=== PATIENT | female | born 1975 | race African-American/Black ===

== ENCOUNTER 2017-11-11 16:45 | Emergency (ER) | payer SELFPAY ==
--- NOTE | 2017-11-11 17:25 | ER Document Report ---
ED Medical Screen (RME) - General Chief Complaint: Abdominal Pain Stated Complaint: ABDOMINAL PAIN Time Seen by Provider: 11/11/17 17:14 Mode of Arrival: Ambulatory Information source: Patient Notes: 42-year-old female presents with complaints of diarrhea abdominal cramping in bilateral lower quadrants nausea. Patient denies any similar pain in the past. Patient has never had any abdominal surgeries I have greeted and performed a rapid initial assessment of this patient. A comprehensive ED assessment and evaluation of the patient, analysis of test results and completion of the medical decision making process will be conducted by additional ED providers. PHYSICAL EXAMINATION: GENERAL: Well-appearing, well-nourished and in no acute distress. HEAD: Atraumatic, normocephalic. EYES: Pupils equal round extraocular movements intact, conjunctiva are normal. ENT: Nares patent NECK: Normal range of motion LUNGS: No respiratory distress Musculoskeletal: Normal range of motion NEUROLOGICAL: Normal speech, normal gait. PSYCH: Normal mood, normal affect. SKIN: Warm, Dry, normal turgor, no rashes or lesions noted. TRAVEL OUTSIDE OF THE [place] IN LAST 30 DAYS: No - Related Data Allergies/Adverse Reactions: No Known Allergies Allergy (Unverified 11/11/17 16:47) Past Medical History - Social History Frequency of alcohol use: Occasional Drug Abuse: None Renal/ Medical History: Denies: Hx Peritoneal Dialysis Physical Exam - Vital signs Vitals: Temp Pulse Resp BP Pulse Ox 99.3 F 110 H 18 141/84 H 98 11/11/17 16:56 11/11/17 16:56 11/11/17 16:56 11/11/17 16:56 11/11/17 16:56 Course - Vital Signs Vital signs: Temp Pulse Resp BP Pulse Ox 99.3 F 110 H 18 141/84 H 98 11/11/17 16:56 11/11/17 16:56 11/11/17 16:56 11/11/17 16:56 11/11/17 16:56
[2017-11-11] MEDS ORDERED: DICYCLOMINE HCL INJ 20 MG/2 ML AMPULE IM ONE (17:26)
[2017-11-11] MEDS ORDERED: NORMAL SALINE 1000 ML 1,000 ML IV ONE (17:26)
[2017-11-11 17:52] LABS: HEMATOCRIT 35.3 % (36.0-47.0); HEMOGLOBIN 11.2 g/dL (12.0-15.5); HGB HCT DIFFERENCE -1.7; MEAN CORPUSCULAR HEMOGLOBIN 21.5 pg (27.0-33.4); MEAN CORPUSCULAR HGB CONC 31.7 g/dL (32.0-36.0); MEAN CORPUSCULAR VOLUME 68 fl (80-97); RED BLOOD COUNT 5.21 10^6/uL (3.72-5.28); RED CELL DISTRIBUTION WIDTH 16.7 % (11.5-14.0); WHITE BLOOD COUNT 20.8 10^3/uL (4.0-10.5)
[2017-11-11] MEDS ORDERED: HYDROMORPHONE HCL INJ/PF 2 MG/ML AMPULE IV ONE (17:57)
[2017-11-11 18:01] LABS: APPEARANCE,URINE CLOUDY; BILIRUBIN,URINE SMALL (NEGATIVE); GLUCOSE, URINE NEGATIVE (NEGATIVE); KETONES,URINE TRACE mg/dL (NEGATIVE); LEUKOCYTE ESTERASE,URINE LARGE (NEGATIVE); NITRITE,URINE NEGATIVE (NEGATIVE); PROTEIN,URINE 100 mg/dL (NEGATIVE); URINE SPECIFIC GRAVITY 1.032; UROBILINOGEN,URINE NEGATIVE mg/dL (<2.0)
[2017-11-11 18:07] LABS: BASOPHILS % (MANUAL) 1 % (0-2); EOSINOPHILS % (MANUAL) 0 % (0-6); LYMPHOCYTES % (MANUAL) 4 % (13-45); TOTAL CELLS COUNTED 100
--- NOTE | 2017-11-11 18:07 | ER Document Report ---
ED GI/ - General Mode of Arrival: Ambulatory Information source: Patient TRAVEL OUTSIDE OF THE [place] IN LAST 30 DAYS: No - HPI Patient complains to provider of: Abdominal pain Onset: Yesterday Location: Other - see notes above LMP: currently on Associated symptoms: Other - see notes above <RAVEN LEE - Last Filed: 11/11/17 18:10> <EWAHALEYMARILEE - Last Filed: 11/11/17 23:27> - General Chief Complaint: Abdominal Pain Stated Complaint: ABDOMINAL PAIN Time Seen by Provider: 11/11/17 17:14 Notes: 42 year old female presents to the ED complaining of worsening bilateral lower quadrant abdominal pain that started yesterday and exacerbated early this morning at 0200. Patient reports that she developed a headache, but was able to achieve pain relief with BC powder last night. This morning the patient was still having pains and took an ibuprofen for mild relief. Patient states she has never had pain like this in the past except when she miscarried. Patient is also experiencing numerous episodes of diarrhea and nausea, but denies any vomiting or blood in stool. Patient denies any recent antibiotic use. Patient was recently on a 28 day starch restricted diet, but had a slice of bread 2 days ago. Patient is currently on her menstrual period and reports no irregularities. ( RAVEN LEE) - Related Data Allergies/Adverse Reactions: No Known Allergies Allergy (Unverified 11/11/17 16:47) Past Medical History - General Information source: Patient - Social History Smoking Status: Never Smoker Chew tobacco use (# tins/day): No Frequency of alcohol use: Occasional Drug Abuse: None Family History: Reviewed & Not Pertinent Patient has suicidal ideation: No Patient has homicidal ideation: No Renal/ Medical History: Denies: Hx Peritoneal Dialysis Surgical Hx: Negative <RAVEN LEE - Last Filed: 11/11/17 18:10> Review of Systems - Review of Systems Constitutional: No symptoms reported EENT: No symptoms reported Cardiovascular: No symptoms reported Respiratory: No symptoms reported Gastrointestinal: See HPI, Abdominal pain, Diarrhea, Nausea. denies: Vomiting, Rectal bleeding Genitourinary: No symptoms reported Female Genitourinary: See HPI, Last menstrual period - currently on Musculoskeletal: No symptoms reported Skin: No symptoms reported Hematologic/Lymphatic: No symptoms reported Neurological/Psychological: No symptoms reported -: Yes All other systems reviewed and negative <RAVEN LEE - Last Filed: 11/11/17 18:10> Physical Exam <RAVEN LEE - Last Filed: 11/11/17 18:10> <MARILEE REYES - Last Filed: 11/11/17 23:27> - Vital signs Vitals: Temp Pulse Resp BP Pulse Ox 99.3 F 110 H 18 141/84 H 98 11/11/17 16:56 11/11/17 16:56 11/11/17 16:56 11/11/17 16:56 11/11/17 16:56 - Notes Notes: GENERAL: Alert, interacts well. No acute distress. HEAD: Normocephalic, atraumatic. EYES: Pupils equal, round, and reactive to light. Extraocular movements intact. ENT: Oral mucosa moist, tongue midline. NECK: Full range of motion. Supple. Trachea midline. LUNGS: Clear to auscultation bilaterally, no wheezes, rales, or rhonchi. No respiratory distress. HEART: Tachycardic with normal rhythm. No murmurs, gallops, or rubs. ABDOMEN: Soft. Bowel sounds present in all 4 quadrants, but slightly decreased. Diffuse tenderness to palpation with mild distention and guarding. No rebound or rigidity. EXTREMITIES: Moves all 4 extremities spontaneously. No edema, radial pulses 2/4 bilaterally. No cyanosis. NEUROLOGICAL: Alert and oriented x3. Normal speech. PSYCH: Normal affect, normal mood. SKIN: Warm, dry, normal turgor. No rashes or lesions noted. (RAVEN LEE) Course - Laboratory Result Diagrams: 11/11/17 17:40 11/11/17 17:40 <RAVEN LEE - Last Filed: 11/11/17 18:10> - Laboratory Result Diagrams: 11/11/17 17:40 11/11/17 17:40 <MARILEE REYES - Last Filed: 11/11/17 23:27> - Re-evaluation Re-evalutation: 11/11/17 21:31 CBC shows marked leukocytosis of 20.8, mild anemia with hemoglobin 11.2, platelets normal, there is a bandemia, chemistry showed low potassium 3.2, bump in the creatinine to 1.35, patient was hydrated, lipase normal, urinalysis shows trace ketones and large leukocyte esterase, 1+ bacteria, many WBC clumps, 37 squamous epithelial cells. HCG is negative. CT scan of the abdomen pelvis was ordered given her tenderness to palpation and her profuse diarrhea, this was negative except for uterine fibroids, these are not causing her any symptoms at this time. Given the leukocytosis and the lower abdominal pain despite the fact that her urinalysis is a contaminated specimen I am opting to treat it at this time. Patient will be treated with Keflex which is unlikely to cause diarrhea. She will be given a 5 day course. Patient's pain and diarrhea will be to treated with Bentyl and Imodium. She will be discharged to home. (MARILEE REYES) - Vital Signs Vital signs: Temp Pulse Resp BP Pulse Ox 98.6 F 110 H 20 140/98 H 100 11/11/17 21:45 11/11/17 16:56 11/11/17 21:45 11/11/17 21:45 11/11/17 21:45 - Laboratory Laboratory results interpreted by me: 11/11/17 11/11/17 11/11/17 17:40 17:40 17:40 WBC 20.8 H Hgb 11.2 L Hct 35.3 L MCV 68 L MCH 21.5 L MCHC 31.7 L RDW 16.7 H Seg Neuts % (Manual) 81 H Band Neutrophils % 13 H Lymphocytes % (Manual) 4 L Monocytes % (Manual) 1 L Abs Neuts (Manual) 19.6 H Potassium 3.2 L Creatinine 1.35 H Est GFR ( Amer) 52 L Est GFR (Non-Af Amer) 43 L Urine Protein 100 H Urine Ketones TRACE H Urine Bilirubin SMALL H Ur Leukocyte Esterase LARGE H Urine Ascorbic Acid 20 H Discharge <RAVEN LEE - Last Filed: 11/11/17 18:10> <MARILEE REYES - Last Filed: 11/11/17 23:27> - Discharge Clinical Impression: Dehydration, mild, Hypokalemia, Prehypertension Diarrhea Qualifiers: Diarrhea type: unspecified type Qualified Code(s): R19.7 - Diarrhea, unspecified UTI (urinary tract infection) Qualifiers: Urinary tract infection type: acute cystitis Hematuria presence: without hematuria Qualified Code(s): N30.00 - Acute cystitis without hematuria Fibroids Qualifiers: Uterine leiomyoma location: unspecified location Qualified Code(s): D25.9 - Leiomyoma of uterus, unspecified Condition: Stable Disposition: HOME, SELF-CARE Additional Instructions: Today your CAT scan only showed uterine fibroids. There was no evidence of bacterial infection or surgical process in your abdomen. I suspect her diarrhea is viral. Please take Imodium as directed on the box for your diarrhea. You may also use the Bentyl (dicyclomine) for the pain and cramping in your belly. Should you develop fevers, worsening abdominal pain or blood in your stool or dark black tarry stools please return to the emergency department. You do have a mild urinary tract infection. This is being treated with Keflex. Your potassium was slightly low from the diarrhea. This was fixed tonight by giving a potassium liquid. You do not need to take potassium at home. You should eat a banana every day for the next few days. Your CAT scan did incidentally show fibroids in your uterus. These can cause miscarriages and uterine bleeding. Prescriptions: Cephalexin Monohydrate [Keflex 500 mg Capsule] 500 mg PO Q6H 5 Days capsule Dicyclomine HCl [Bentyl 20 mg Tablet] 20 mg PO QIDP PRN #40 tablet PRN Reason: Forms: Elevated Blood Pressure Referrals: JOSE RICHARD MD [ACTIVE STAFF] - Follow up in 1 week Scribe Attestation: 11/11/17 23:27 I personally performed the services described in the documentation, reviewed and edited the documentation which was dictated to the scribe in my presence, and it accurately records my words and actions. (MARILEE REYES) Scribe Documentation - Scribe Written by Constantino:: Constantino Renae, 11/11/[id number] acting as scribe for :: Laura <RAVEN LEE - Last Filed: 11/11/17 18:10>
[2017-11-11 18:08] LABS: ANISOCYTOSIS 1+; BAND NEUTROPHILS % (MANUAL) 13 % (3-5); HYPOCHROMASIA 2+; MICROCYTOSIS 2+; POIKILOCYTOSIS SLIGHT; POLYCHROMASIA SLIGHT; TARGET CELLS SLIGHT
[2017-11-11 18:12] LABS: ALANINE AMINOTRANSFERASE 22 U/L (9-52); ALBUMIN 4.1 g/dL (3.5-5.0); ALKALINE PHOSPHATASE 81 U/L (38-126); ANION GAP 14 (5-19); ASPARTATE AMINO TRANSFERASE 18 U/L (14-36); BILIRUBIN,DIRECT 0.3 mg/dL (0.0-0.4); BILIRUBIN,TOTAL 1.1 mg/dL (0.2-1.3); BLOOD UREA NITROGEN 15 mg/dL (7-20); CALCIUM 9.8 mg/dL (8.4-10.2); CARBON DIOXIDE 26 mmol/L (22-30); CHLORIDE 100 mmol/L (98-107); CREATININE RESULT 1.35 mg/dL (0.52-1.25); GLUCOSE 109 mg/dL (75-110); LIPASE 121.6 U/L (23-300); POTASSIUM 3.2 mmol/L (3.6-5.0); TOTAL PROTEIN 7.9 g/dL (6.3-8.2)
--- NOTE | 2017-11-11 19:20 | RADIOLOGY REPORT (SQ) ---
EXAM DESCRIPTION: CT ABD/PELVIS WITH IV ONLY COMPLETED DATE/TIME: 11/11/2017 7:06 pm REASON FOR STUDY: LLQ abd pain, r/o diverticulitis COMPARISON: None. TECHNIQUE: CT scan of the abdomen and pelvis performed using helical scanning technique with dynamic intravenous contrast injection. No oral contrast. Images reviewed with lung, soft tissue, and bone windows. Reconstructed coronal and sagittal MPR images reviewed. Delayed images for evaluation of the urinary system also acquired. All images stored on PACS. All CT scanners at this facility use dose modulation, iterative reconstruction, and/or weight based d osing when appropriate to reduce radiation dose to as low as reasonably achievable (ALARA). [facility]: Dose Right [facility]: CareDose [facility]: Dose Right [facility]: Teradose 4D [facility]: TagMii CONTRAST TYPE AND DOSE: contrast/concentration: Isovue 370.00 mg/ml; Total Contrast Delivered: 93.0 ml; Total Saline Delivered: 61.1 ml RENAL FUNCTION: Creatinine 1.35 RADIATION DOSE: CT Rad equipment meets quality standard of care and radiation dose reduction techniq ues were employed. CTDIvol: 9.0 - 11.7 mGy. DLP: 1121 mGy-cm.. LIMITATIONS: None. FINDINGS: LOWER CHEST: No significant findings. No nodules or infiltrates. LIVER: Normal size. No masses. No dilated ducts. SPLEEN: Normal size. No focal lesions. PANCREAS: No masses. No significant calcifications. No adjacent inflammation or peripancreatic fluid collections. Pancreatic duct not dilated. GALLBLADDER: No identified stones by CT criteria. No inflammatory changes to suggest cholecystitis. ADRENAL GLANDS: No significant masses or asymmetry. RIGHT KIDNEY AND URETER: No solid masses. No significant calcifications. No hydronephrosis or hyd roureter. LEFT KIDNEY AND URETER: No solid masses. No significant calcifications. No hydronephrosis or hydr oureter. AORTA AND VESSELS: No aneurysm. No dissection. Renal arteries, SMA, celiac without stenosis. RETROPERITONEUM: No retroperitoneal adenopathy, hemorrhage or masses. BOWEL AND PERITONEAL CAVITY: No masses or inflammatory changes. No free fluid or peritoneal masses. APPENDIX: Normal. PELVIS: Enlarged uterus measuring 9.3 by 10 x 11.4 cm. Multiple fibroids. The largest is 7.4 cm. ABDOMINAL WALL: No masses. No hernias. BONES: No significant or acute findings. OTHER: No other significant finding. IMPRESSION: Enlarged uterus with multiple fibroids. No inflammatory changes. TECHNICAL DOCUMENTATION: JOB ID: [id number] Quality ID # [id number]: Final reports with documentation of one or more dose reduction techniques (e.g., Au tomated exposure control, adjustment of the mA and/or kV according to patient size, use of iterative reconstruction technique) 2010 [employer]- All Rights Reserved
[2017-11-11] MEDS ORDERED: POTASSIUM CHLORIDE 20 MEQ/15 ML UDCUP PO ONE (21:32)
[2017-11-11] MEDS ORDERED: LOPERAMIDE HCL 2 MG CAPSULE PO ONE (21:34)
[2017-11-11 21:52] VITALS: BP 140/98
[2017-11-12 11:04] LABS: PATH REVIEW PATHOLOGIST REVIEWED
== END 2017-11-11 21:50 | disposition home or self-care (01) ==
LOC: ER 16:45
DX: E86.0 Dehydration (principal); E87.6 Hypokalemia; N30.00 Acute cystitis without hematuria; R19.7 Diarrhea, unspecified; R10.30 Lower abdominal pain, unspecified; R03.0 Elevated blood-pressure reading, without diagnosis of hypertension; D25.9 Leiomyoma of uterus, unspecified
CPT/HCPCS: 99284; 96372; 96361; 96374; 36415; 87086; 83690; 85025; 81025; 80053; 81001; 74177; J0500; J1170; J7030

== ENCOUNTER 2019-05-26 02:03 | Inpatient (IN) | payer SELFPAY ==
[2019-05-26] MEDS ORDERED: NITROGLYCERIN/D5W 50 MG/250 ML RTUINJ IV PRN ×2 (02:23→09:07)
[2019-05-26] MEDS ORDERED: ASPIRIN 81 MG TABLET, CHEWABLE PO ONE (02:26)
--- NOTE | 2019-05-26 02:31 | ER Document Report ---
ED General - General Chief Complaint: Shortness Of Breath Stated Complaint: DIFFICULTY BREATHING Time Seen by Provider: 05/26/19 02:18 Notes: Patient is a pleasant 43-year-old female reports no previous past medical history presents with sudden onset of chest tightness and shortness of breath that started approximately hour prior to arrival. She is never had anything like this before. No history of asthma. She does not smoke. She does not drink alcohol regular basis. She denies any illegal drug use. She denies any family history other than her mother just recently starting to have some heart troubles in the last year or 2. Patient herself has never had any heart issues and does not take any medications. She does not follow with a doctor and does not get yearly physicals. TRAVEL OUTSIDE OF THE [place] IN LAST 30 DAYS: No - Related Data Allergies/Adverse Reactions: No Known Allergies Allergy (Unverified 11/11/17 16:47) Past Medical History - Social History Smoking Status: Never Smoker Frequency of alcohol use: None Drug Abuse: None Family History: Reviewed & Not Pertinent Renal/ Medical History: Denies: Hx Peritoneal Dialysis Review of Systems - Review of Systems Notes: My Normal Review Basic REVIEW OF SYSTEMS: CONSTITUTIONAL : Denies fever, chills, or sweats. Denies recent illness. EENT: Denies eye, ear, throat, or mouth pain or symptoms. Denies nasal or sinus congestion. CARDIOVASCULAR: Tightness. Tachycardia. RESPIRATORY: Dyspnea GASTROINTESTINAL: Denies abdominal pain. Denies nausea, vomiting, or diarrhea. GENITOURINARY: Denies difficulty urinating, painful urination, burning, frequency, or blood in urine. MUSCULOSKELETAL: Denies neck or back pain or joint pain or swelling. SKIN: Denies rash or skin lesions. NEUROLOGICAL: Denies altered mental status or loss of consciousness. Denies headache. Denies weakness or paralysis or loss of use of either side. Denies problems with gait or speech. Denies sensory or motor loss. ALL OTHER SYSTEMS REVIEWED AND NEGATIVE. Physical Exam - Vital signs Vitals: Resp Pulse Ox 35 H 100 05/26/19 02:20 05/26/19 02:20 - Notes Notes: General Appearance: Well nourished, alert, cooperative, mild acute distress, no obvious discomfort. Vitals: reviewed, See vital signs table. Head: no swelling or tenderness to the head Eyes: PERRL, EOMI, Conjuctiva clear Mouth: No decreasd moisture Neck: Supple, no neck tenderness, No thyromegaly Lungs: No wheezing, scattered rales, No rhonci, No accessory muscle use, good air exchange bilaterally. Heart: Tachycardic rate, Regular rythm, No murmur, no rub Abdomen: Normal BS, soft, No rigidity, No abdominal tenderness, No guarding, no rebound, no abdominal masses, no organomegaly Extremities: strength 5/5 in all extremities, good pulses in all extremities, no swelling or tenderness in the extremities, no edema. Skin: warm, dry, appropriate color, no rash Neuro: speech clear, oriented x 3, normal affect, responds appropriately to questions. Course - Re-evaluation Re-evalutation: 05/26/19 02:26 Patient presents with onset of chest pain and shortness of breath just 1 hour prior to arrival to the ED. She is never had anything like this before. She was not doing anything exertional and started. EKG does shows a left bundle branch block. She says she is never had previous EKG she has never heard of left bundle branch block. Prescribed Sgarbossa criteria is not consistent with ID at this time. She has no medical conditions and is not taking medications. Her lung ghosh do sound as if they have rales. This concerning for the possibility of ID. At this time I would not start thrombolytics as the left bundle is not 100% specific for ID and the patient has no risk factors and no family history that would be concerning. I will get a quick chest x-ray. I will order troponin. I have ordered nitro drip. I have started aspirin. 05/26/19 02:41 I performed a quick bedside echo. Patient has very good contractility of the right ventricle. She possibly has some mild decrease in contractility of the left ventricle. No pericardial effusion. 05/26/19 02:44 05/26/19 02:48 I did give patient 5 mg of Lopressor because she had severe chest tightness hypertension and her heart rate was in the 130s. Her heart rate is now down to upper 90s and low 100s. She seems more comfortable with that and the nitro drip. She says she still has some chest tightness but it is a little bit improved. Chest x-ray looks like she may have a little bit of edema in her lungs. This is consistent with what I am hearing along auscultation. Waiting troponin. I will do a repeat EKG. Patient has no radiation of pain. She has no pain into her back or down her arm and therefore I think dissection is less likely. PE is a possibility however I not see any evidence of right ventricular strain, bedside echo. I will continue to monitor and await results of the troponin which should be back soon. 05/26/19 03:12 Initial troponin is negative. Patient's tachycardia is improved. Heart rate is 91. Blood pressure is improving with the nitro drip. Her chest tightness is also improving. Is now down to a 3 out of 5. Being that troponin is negative we will send her to CT scanner to obtain a CTA of her chest. 05/26/19 04:26 05/26/19 04:37 Patient says that she continues to feel much improved. She is on a nitro drip at 60. This is keeping her chest pressure under control. Her blood pressure is 140/91. This also brought her blood pressure down. Her heart rate has remained normalized and is currently 80. Repeat EKG shows continued left bundle branch block without any new changes. I have ordered a repeat troponin to make sure that that this is not uptrending. 05/26/19 06:31 Patient's troponin came back and is stable. Her initial troponin was 0.012. A repeat 2 hours later was 0.013. This is not indicative of an ID fourth and left bundle branch block is not indicative of an ID. She obviously had what appears to be a episode of a hypertensive urgency with flash pulmonary edema. CT scan was obtained to make sure is no evidence PE or dissection and CT scans were negative. Patient still currently on a nitro drip. Her chest pressure is resolved. She looks more comfortable. Her blood pressure is holding controlled with the nitro drip. I did speak with Dr. José, hospitalist, who agrees to accept the patient and will speak with the daytime hospitalist to come down ev aluate the patient for admission. Being that the patient is on high-dose nitro drip per hospital protocol I will place her in the ICU. Dictation of this chart was performed using voice recognition software; therefore, there may be some unintended grammatical errors. - Vital Signs Vital signs: Temp Pulse Resp BP Pulse Ox 98.6 F 130 H 22 H 129/85 H 100 05/26/19 02:22 05/26/19 02:22 05/26/19 06:10 05/26/19 06:10 05/26/19 06:10 - Laboratory Result Diagrams: 05/26/19 02:26 05/26/19 02:26 Laboratory results interpreted by me: 05/26/19 05/26/19 05/26/19 02:26 02:26 02:26 Hgb 10.7 L Hct 33.3 L MCV 67 L MCH 21.5 L RDW 19.0 H Potassium 3.1 L TSH 4.84 H - EKG Interpretation by Me Additional EKG results interpreted by me: EKG #1 is reviewed and interpreted by me. EKG shows sinus cardia with a rate of 133 bpm. She does have a left bundle branch block which does not meet discr epancy criteria for ID. NC interval is within normal range. QRS duration and QT intervals are prolonged. No old EKG available for comparison. 05/26/19 04:26 EKG #2 shows sinus rhythm with rate of 82 bpm. She continues to have a left bundle branch block that does not meet Chastity's criteria for ID. NC interval is within normal range. QRS duration and QTc intervals are prolonged. 05/26/19 04:27 Critical Care Note - Critical Care Note Total time excluding time spent on procedures (mins): 45 Comments: Critical care time for this patient not including time spent in procedures proximally 45 minutes due to management of pulmonary edema, hypertensive crisis, tachycardia, acute chest pain. Discharge - Discharge Clinical Impression: Hypertensive crisis Pulmonary edema Qualifiers: Chronicity: acute Qualified Code(s): J81.0 - Acute pulmonary edema Chest pain Qualifiers: Chest pain type: unspecified Qualified Code(s): R07.9 - Chest pain, unspecified Condition: Stable Disposition: ADMITTED INPATIENT Admitting Provider: Arnav (Hospitalist) Unit Admitted: ICU
[2019-05-26 02:34] LABS: ABSOLUTE BASOPHILS # (AUTO) 0.1 10^3/uL (0.0-0.2); ABSOLUTE EOSINOPHILS # (AUTO) 0.3 10^3/uL (0.0-0.6); ABSOLUTE LYMPHOCYTES (AUTO) 3.8 10^3/uL (0.5-4.7); ABSOLUTE MONOCYTES (AUTO) 0.6 10^3/uL (0.1-1.4); ABSOLUTE NEUT (AUTO) 4.6 10^3/uL (1.7-8.2); BASOPHILS % (AUTO) 0.6 % (0-2); EOSINOPHILS % (AUTO) 2.9 % (0-6); HEMATOCRIT 33.3 % (36.0-47.0); HEMOGLOBIN 10.7 g/dL (12.0-15.5); MEAN CORPUSCULAR HEMOGLOBIN 21.5 pg (27.0-33.4); MEAN CORPUSCULAR VOLUME 67 fl (80-97); MONOCYTES % (AUTO) 6.1 % (3-13); PLATELET COUNT 344 10^3/uL (150-450); RED BLOOD COUNT 4.96 10^6/uL (3.72-5.28); SEGMENTED NEUTROPHILS % (AUTO) 49.4 % (42-78); TOTAL CELLS COUNTED % (AUTO) 100 %; WHITE BLOOD COUNT 9.4 10^3/uL (4.0-10.5)
[2019-05-26] MEDS ORDERED: METOPROLOL TARTRATE PF/INJ 5 MG/5 ML SDV IV ONE ×2 (02:37)
[2019-05-26 02:42] LABS: INTERNATIONAL RATION (INR) 0.93; PROTHROMBIN TIME 12.5 SEC (11.4-15.4)
[2019-05-26 02:54] LABS: ALANINE AMINOTRANSFERASE 24 U/L (9-52); ALBUMIN 4.3 g/dL (3.5-5.0); ALKALINE PHOSPHATASE 61 U/L (38-126); ANION GAP 11 (5-19); ASPARTATE AMINO TRANSFERASE 31 U/L (14-36); BILIRUBIN,DIRECT 0.2 mg/dL (0.0-0.4); BILIRUBIN,TOTAL 0.6 mg/dL (0.2-1.3); BLOOD UREA NITROGEN 13 mg/dL (7-20); CALCIUM 9.4 mg/dL (8.4-10.2); CARBON DIOXIDE 26 mmol/L (22-30); CHLORIDE 104 mmol/L (98-107); GLUCOSE 107 mg/dL (75-110); POTASSIUM 3.1 mmol/L (3.6-5.0); SODIUM 141.4 mmol/L (137-145)
--- NOTE | 2019-05-26 02:54 | RADIOLOGY REPORT (SQ) ---
EXAM DESCRIPTION: XR CHEST 1 VIEW COMPLETED DATE/TME: 05/26/2019 02:25 CLINICAL HISTORY: 43 years, Female, chest pain, dyspnea COMPARISON: None. NUMBER OF VIEWS: 1 TECHNIQUE: Portable chest LIMITATIONS: None. FINDINGS: The heart size is normal. Airspace opacity right lung base suspicious for pneumonia. Mild elevation right hemidiaphragm. No pneumothorax. IMPRESSION: Findings suspicious for right lower lobe pneumonia copyright 2010 [employer]- All Rights Reserved
--- NOTE | 2019-05-26 03:57 | RADIOLOGY REPORT (SQ) ---
CLINICAL HISTORY: chest pain, tachycardia COMPARISON: None. TECHNIQUE: CT CHEST ANGIOGRAPHY WITHOUT THEN WITH IV CONTRAST on 05/26/2019 3:07 AM CDT. MIPS reconstructions were generated. This exam was performed according to our departmental dose-optimization program, which includes automated exposure control, adjustment of the mA and/or kV according to patient size and/or use of iterative reconstruction technique. MIP images were generated. FINDINGS: Thoracic aorta is normal in course and caliber without aneurysm or dissection. Pulmonary arteries are adequately opacified without acute or chronic filling defects. The heart is normal in size. There is no pericardial effusion. Intrathoracic lymph nodes are not enlarged. There are trace pleural effusions. Central airways are patent. There is mild diffuse pulmonary edema. There are groundglass opacities in the lower lobes. There are no acute abnormalities within the limited images of the upper abdomen. There are no acute osseous findings. No suspicious bony lesions. IMPRESSION: No aortic dissection or aneurysm. No pulmonary embolus. Pleural effusions with mild pulmonary edema. Bibasilar groundglass opacities may reflect component of edema versus superimposed pneumonia.
[2019-05-26] MEDS ORDERED: POTASSIUM CHLORIDE 10 MEQ CAPSULE.ER PO ONE (04:05)
[2019-05-26 05:23] LABS: APPEARANCE,URINE CLEAR; BILIRUBIN,URINE NEGATIVE (NEGATIVE); COLOR,URINE STRAW; GLUCOSE, URINE NEGATIVE (NEGATIVE); KETONES,URINE NEGATIVE (NEGATIVE); LEUKOCYTE ESTERASE,URINE NEGATIVE (NEGATIVE); NITRITE,URINE NEGATIVE (NEGATIVE); PROTEIN,URINE NEGATIVE (NEGATIVE); UROBILINOGEN,URINE NEGATIVE mg/dL (<2.0)
[2019-05-26 05:32] LABS: URINE SPECIFIC GRAVITY 1.014
[2019-05-26 05:41] LABS: URINE AMPHETAMINES SCREEN NEGATIVE; URINE BARBITURATES SCREEN NEGATIVE; URINE BENZODIAZEPINES SCREEN NEGATIVE; URINE COCAINE SCREEN NEGATIVE; URINE MARIJUANA (THC) SCREEN NEGATIVE; URINE METHADONE SCREEN NEGATIVE; URINE PHENCYCLIDINE SCREEN NEGATIVE
[2019-05-26] MEDS ORDERED: MAG HYDROX/AL HYDROX/SIMETH SUSP 30 ML UDCUP PO PRN (09:00)
[2019-05-26] MEDS ORDERED: OXYCODONE-ACETAMINOPHEN 5-325 MG TABLET PO PRN (09:00)
[2019-05-26] MEDS ORDERED: TEMAZEPAM 7.5 MG CAPSULE PO PRN (09:00)
[2019-05-26] MEDS ORDERED: METOPROLOL TARTRATE 25 MG TABLET PO ONE (09:11)
[2019-05-26] MEDS: NITROGLYCERIN/D5W 50 MG/250 ML RTUINJ IV PRN ×2 (09:17→15:35)
--- NOTE | 2019-05-26 09:33 | ADVANCED CARE ---
- Diagnosis (1) Chest pain Diagnosis Current: Yes (2) Hypertensive crisis Diagnosis Current: Yes (3) Pulmonary edema Diagnosis Current: Yes Attendance: Patient and significant other Jose Resuscitation Status: Full Code Discussion: Despite her young age I reviewed the [place] advance care planning document enclosed in the admissions packet. We reviewed the fact that she is not legally to Jose and that her oldest son would legally have decision- making responsibilities however she did designate Jose is the decision maker. I explained and showed her that she could put him on paper and in fact identify a secondary decision maker. I also showed her the area that she can be very specific about such things as feeding tubes, tracheostomies, long-term half-way placement etc... Jose is currently in the situation with his 94-year-old mother and understands. Care Planning Goals: Establish care plan in the event of acute incapacitation as well as start to think about long-term planning Document(s) Completed: None completed at this time Time Spent: 18 minutes
[2019-05-26 09:40] LABS: ABSOLUTE RETICS # 0.133 10^6/uL (0.028-0.122); RETICULOCYTE COUNT (AUTO) 2.69 % (0.66-2.85)
[2019-05-26] MEDS ORDERED: LOSARTAN POTASSIUM 25 MG TABLET PO SCH (10:00)
[2019-05-26 10:08] LABS: IRON(TIBC) 42.6 ug/dL (37-170)
[2019-05-26] MEDS: ACETAMINOPHEN 325 MG TABLET PO PRN ×2 (10:12→15:43)
[2019-05-26] MEDS: FUROSEMIDE 20 MG TABLET PO SCH (10:13)
[2019-05-26] MEDS: ONDANSETRON 4 MG TAB.RAPDIS PO PRN ×2 (10:13→15:43)
[2019-05-26] MEDS: ASCORBIC ACID 500 MG TABLET PO SCH (10:14)
[2019-05-26] MEDS: FERROUS SULFATE 325 MG TABLET PO SCH (10:14)
[2019-05-26] MEDS: DOCUSATE SODIUM 100 MG CAPSULE PO SCH ×2 (10:15→16:59)
[2019-05-26] MEDS: FAMOTIDINE 20 MG TABLET PO SCH ×2 (10:15→22:30)
[2019-05-26] MEDS: ENOXAPARIN SODIUM INJ 40 MG/0.4 ML DISP.SYRIN SUBCUT SCH (10:16)
[2019-05-26 10:23] LABS: FREE T3 3.83 pg/mL (2.77-5.27); FREE T4 (FREE THYROXINE) 1.18 ng/dL (0.78-2.19)
[2019-05-26 11:13] LABS: FOLATE 8.04 ng/mL (>2.76)
--- NOTE | 2019-05-26 11:22 | EKG REPORT ---
SEVERITY:- ABNORMAL ECG - SINUS RHYTHM PROBABLE LEFT ATRIAL ABNORMALITY LEFT BUNDLE BRANCH BLOCK : Confirmed by: Zayda Jones MD 26-May-2019 11:21:39
--- NOTE | 2019-05-26 11:22 | EKG REPORT ---
SEVERITY:- ABNORMAL ECG - SINUS TACHYCARDIA PROMINENT P WAVES, NONDIAGNOSTIC LEFT BUNDLE BRANCH BLOCK : Confirmed by: Zayda Jones MD 26-May-2019 11:21:46
[2019-05-26 12:59] LABS: CREATINE KINASE MB 1.77 ng/mL (<4.55)
[2019-05-26 13:02] LABS: TROPONIN I 0.035 ng/mL
[2019-05-26] MEDS ORDERED: NITROGLYCERIN/D5W 50 MG/250 ML RTUINJ IV ONE (15:08)
[2019-05-26 18:18] LABS: CREATINE KINASE MB 1.5 ng/mL (<4.55); TROPONIN I 0.036 ng/mL
--- NOTE | 2019-05-26 18:37 | PDOC H&P ---
History of Present Illness Admission Date/PCP: 05/26/19 06:43 Patient complains of: Acute onset shortness of breath and chest discomfort History of Present Illness: LUZ MARIA OLIVEIRA is a 43 year old female with no significant past medical history who awoke with shortness of breath and chest discomfort. She had brief diaphoresis. There is no nausea, vomiting or palpitations. She had transient chest discomfort but no radiation. It was mild. Her breathing improved when she was upright. She has a family history of heart disease but no significant past medical history. She is not on any aspirin. On admission her blood pressure was elevated at 135/91 and she was placed on IV nitroglycerin more for chest discomfort and possible new heart failure. She was referred to the hospital service for admission. Past Medical History Cardiac Medical History: Denies: Atrial Fibrillation, Congestive Heart Failure, Myocardial Infarction, Hypertension, Heart Murmur Pulmonary Medical History: Denies: Asthma, Chronic Obstructive Pulmonary Disease (COPD), Respiratory Failure EENT Medical History: Reports: None Neurological Medical History: Denies: Hemorrhagic CVA, Ischemic CVA Endocrine Medical History: Denies: Diabetes Mellitus Type 1, Diabetes Mellitus Type 2, Hyperthyroidism, Hypothyroidism Renal/ Medical History: Denies: Chronic Kidney Disease, Nephrolithiasis Malignancy Medical History: Reports: None GI Medical History: Denies: Crohn's Disease, Hepatitis, Hiatal Hernia, Peptic Ulcer Disease, Ulcerative Colitis Musculoskeltal Medical History: Reports: None Skin Medical History: Reports: None Psychiatric Medical History: Denies: Alcohol Dependency, Depression, General Anxiety Disorder, Substance Abuse, Tobacco Dependency Traumatic Medical History: Reports: None Hematology: Denies: Anemia, Sickle Cell Disease, Bleeding Tendencies Infectious Medical History: Reports: None Past Surgical History Past Surgical History: Reports: None Social History Information Source: 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 Lives with: Family Smoking Status: Never Smoker Frequency of Alcohol Use: Occasional Hx Recreational Drug Use: No Hx Prescription Drug Abuse: No - Advance Directive Resuscitation Status: Full Code Surrogate healthcare decision maker:: Jose (significant other) Family History Family History: Hypertension, Other - Congestive heart failure Parental Family History Reviewed: Yes Children Family History Reviewed: Yes Sibling(s) Family History Reviewed.: Yes Medication/Allergy Home Medications: No Home Medications 05/26/19 Allergies/Adverse Reactions: No Known Allergies Allergy (Unverified 12/25/17 16:47) Review of Systems Constitutional: PRESENT: headache(s). ABSENT: anorexia, chills, fatigue, night sweats, weight gain, weight loss Eyes: ABSENT: visual disturbances Ears: ABSENT: hearing changes Nose, Mouth, and Throat: PRESENT: headache(s). ABSENT: mouth pain, sore throat Cardiovascular: PRESENT: chest pain, dyspnea on exertion, edema. ABSENT: palpitations Respiratory: PRESENT: dyspnea. ABSENT: cough, hemoptysis, sputum Gastrointestinal: ABSENT: abdominal pain, constipation, diarrhea, heartburn, melena, nausea, vomiting Genitourinary: ABSENT: difficulty urinating, hematuria Musculoskeletal: ABSENT: back pain, joint swelling, muscle weakness Integumentary: ABSENT: erythema, lesions, rash Neurological: ABSENT: abnormal gait, abnormal speech, convulsions, memory loss, syncope, vertigo Psychiatric: ABSENT: anxiety, depression Endocrine: ABSENT: cold intolerance, heat intolerance Hematologic/Lymphatic: ABSENT: easy bleeding, easy bruising Allergic/Immunologic: ABSENT: seasonal rhinorrhea Physical Exam Vital Signs: Temp Pulse Resp BP Pulse Ox 98.6 F 130 H 21 H 122/83 100 05/26/19 02:22 05/26/19 02:22 05/26/19 07:15 05/26/19 07:15 05/26/19 07:15 Intake & Output 05/25/19 05/26/19 05/27/19 06:59 06:59 06:59 Intake Total 43 187 Balance 43 187 Weight 83.915 kg General appearance: PRESENT: cooperative, mild distress, well-developed Head exam: PRESENT: atraumatic, normocephalic Eye exam: PRESENT: conjunctiva pale, EOMI. ABSENT: conjunctival injection, scleral icterus Ear exam: PRESENT: normal external ear exam Mouth exam: PRESENT: moist, tongue midline Teeth exam: ABSENT: dental tenderness, poor dentation Throat exam: ABSENT: post pharyngeal erythema, tonsillar erythema, tonsillar exudate Neck exam: PRESENT: full ROM. ABSENT: carotid bruit, JVD, lymphadenopathy Respiratory exam: PRESENT: rales - Bilateral bases, symmetrical, unlabored. ABSENT: accessory muscle use, rhonchi, tachypnea, wheezes Cardiovascular exam: PRESENT: RRR, +S1, +S2, systolic murmur - 2/6 Pulses: PRESENT: normal radial pulses, normal dorsalis pedis pul GI/Abdominal exam: PRESENT: normal bowel sounds, soft. ABSENT: ascites, distended, tenderness Rectal exam: PRESENT: deferred Gentrourinary exam: ABSENT: indwelling catheter Extremities exam: PRESENT: pedal edema. ABSENT: calf tenderness, joint swelling Neurological exam: PRESENT: alert, awake, oriented to person, oriented to place, oriented to time, oriented to situation, CN II-XII grossly intact. ABSENT: motor sensory deficit Psychiatric exam: PRESENT: appropriate affect. ABSENT: agitated, anxious, manic Focused psych exam: ABSENT: delusional, flight of ideas, paranoid, restlessness Skin exam: PRESENT: dry, normal color, warm. ABSENT: jaundice, rash Results Laboratory Results: 05/26/19 02:26 05/26/19 02:26 05/26/19 05/26/19 05/26/19 02:26 02:26 02:26 WBC 9.4 RBC 4.96 Hgb 10.7 L Hct 33.3 L MCV 67 L MCH 21.5 L MCHC 32.0 RDW 19.0 H Plt Count 344 Seg Neutrophils % 49.4 Lymphocytes % 41.0 Monocytes % 6.1 Eosinophils % 2.9 Basophils % 0.6 Absolute Neutrophils 4.6 Absolute Lymphocytes 3.8 Absolute Monocytes 0.6 Absolute Eosinophils 0.3 Absolute Basophils 0.1 Sodium 141.4 Potassium 3.1 L Chloride 104 Carbon Dioxide 26 Anion Gap 11 BUN 13 Creatinine 0.80 Est GFR ( Amer) > 60 Est GFR (Non-Af Amer) > 60 Glucose 107 Calcium 9.4 Magnesium Total Bilirubin 0.6 AST 31 ALT 24 Alkaline Phosphatase 61 Total Protein 8.0 Albumin 4.3 TSH 4.84 H Serum HCG, Qual Urine Color Urine Appearance Urine pH Ur Specific [place] Urine Protein Urine Glucose (UA) Urine Ketones Urine Blood Urine Nitrite Ur Leukocyte Esterase Urine WBC (Auto) Urine RBC (Auto) 05/26/19 05/26/19 05/26/19 02:26 02:26 05:00 WBC RBC Hgb Hct MCV MCH MCHC RDW Plt Count Seg Neutrophils % Lymphocytes % Monocytes % Eosinophils % Basophils % Absolute Neutrophils Absolute Lymphocytes Absolute Monocytes Absolute Eosinophils Absolute Basophils Sodium Potassium Chloride Carbon Dioxide Anion Gap BUN Creatinine Est GFR ( Amer) Est GFR (Non-Af Amer) Glucose Calcium Magnesium 1.6 Total Bilirubin AST ALT Alkaline Phosphatase Total Protein Albumin TSH Serum HCG, Qual NEGATIVE Urine Color STRAW Urine Appearance CLEAR Urine pH 8.0 Ur Specific [place] 1.014 Urine Protein NEGATIVE Urine Glucose (UA) NEGATIVE Urine Ketones NEGATIVE Urine Blood NEGATIVE Urine Nitrite NEGATIVE Ur Leukocyte Esterase NEGATIVE Urine WBC (Auto) 0 Urine RBC (Auto) 1 05/26/19 05/26/19 05/26/19 02:26 04:28 04:28 Troponin I < 0.012 0.013 NT-Pro-B Natriuret Pep 412 H Impressions: Chest X-Ray 05/26/19 02:25 IMPRESSION: Findings suspicious for right lower lobe pneumonia copyright 2011 [employer]- All Rights Reserved Chest/Abdomen CTA 05/26/19 03:07 IMPRESSION: No aortic dissection or aneurysm. No pulmonary embolus. Pleural effusions with mild pulmonary edema. Bibasilar groundglass opacities may reflect component of edema versus superimposed pneumonia. Assessment and Plan - Diagnosis (1) Acute respiratory failure with hypoxia Is this a current diagnosis for this admission?: Yes Plan: On admission to the emergency department the patient's oxygen saturation did drop to 89% on room air. She was placed on 2 L nasal cannula oxygen with an excellent response. By the time of this encounter she was breathing more comfortably. (2) Hypertensive crisis Is this a current diagnosis for this admission?: Yes Plan: Blood pressure in the emergency department was as high as 181/139. The patient was placed on nitroglycerin infusion. Aside from a headache it made a significant improvement in her blood pressure. I will start oral medications in effort to wean her from the nitroglycerin infusion. She will be on metoprolol, losartan and furosemide. I have also started aspirin 81 mg daily. She will have serial troponins as well. If discomfort returns we will add nitroglycerin paste or oral nitrates. (3) Pulmonary edema Qualifiers: Chronicity: acute Qualified Code(s): J81.0 - Acute pulmonary edema Is this a current diagnosis for this admission?: Yes Plan: She has no history of failure and does not appear to have a primary pulmonary process such as pneumonia. We will continue furosemide and monitor her intake and output. (4) Chest pain Qualifiers: Chest pain type: unspecified Qualified Code(s): R07.9 - Chest pain, unspecified Is this a current diagnosis for this admission?: Yes Plan: It is hard to tell the exact etiology of the discomfort. With the pulmonary edema and high blood pressure this is likely cardiogenic. Will assess further and try to determine more accurately. (5) Heart murmur Is this a current diagnosis for this admission?: Yes Plan: She does have a murmur. She reports no history of murmur. I have ordered an echocardiogram. She has no history of rheumatic heart disease. Await echocardiogram. This may help to determine the etiology of the pulmonary edema. - Time Time Spent with patient: 35 or more minutes Medications reviewed and adjusted accordingly: Yes Anticipated discharge: Home - Inpatient Certification Based on my medical assessment, after consideration of the patient's comorbidities, presenting symptoms, or acuity I expect that the services needed warrant INPATIENT care.: Yes I certify that my determination is in accordance with my understanding of Medicare's requirements for reasonable and necessary INPATIENT services [42 CFR 412.3e].: Yes Medical Necessity: Need Close Monitoring Due to Risk of Patient Decompensation, Need For Continuous Telemetry Monitoring, Need for Pain Control, Risk of Complication if Not Cared For in Hospital, Risk of Diagnosis Which Will Require Inpatient Eval/Care/Monitoring Post 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
[2019-05-26] MEDS ORDERED: METOPROLOL TARTRATE 25 MG TABLET PO SCH (22:00)
[2019-05-26] MEDS: LOSARTAN POTASSIUM 25 MG TABLET PO SCH (22:30)
[2019-05-26] MEDS: METOPROLOL TARTRATE 25 MG TABLET PO SCH (22:31)
[2019-05-26] MEDS: ASPIRIN 81 MG TABLET, ENT COATED PO SCH (22:31)
[2019-05-27 05:03] LABS: ABSOLUTE BASOPHILS # (AUTO) 0.1 10^3/uL (0.0-0.2); ABSOLUTE EOSINOPHILS # (AUTO) 0.2 10^3/uL (0.0-0.6); ABSOLUTE LYMPHOCYTES (AUTO) 1.6 10^3/uL (0.5-4.7); ABSOLUTE MONOCYTES (AUTO) 0.6 10^3/uL (0.1-1.4); ABSOLUTE NEUT (AUTO) 4.7 10^3/uL (1.7-8.2); BASOPHILS % (AUTO) 1.1 % (0-2); EOSINOPHILS % (AUTO) 2.8 % (0-6); HEMATOCRIT 29.1 % (36.0-47.0); HEMOGLOBIN 9.3 g/dL (12.0-15.5); LYMPHOCYTES % (AUTO) 22.6 % (13-45); MEAN CORPUSCULAR HEMOGLOBIN 21.6 pg (27.0-33.4); MEAN CORPUSCULAR VOLUME 68 fl (80-97); MONOCYTES % (AUTO) 8.1 % (3-13); PLATELET COUNT 269 10^3/uL (150-450); RED BLOOD COUNT 4.31 10^6/uL (3.72-5.28); RED CELL DISTRIBUTION WIDTH 19.2 % (11.5-14.0); SEGMENTED NEUTROPHILS % (AUTO) 65.4 % (42-78); TOTAL CELLS COUNTED % (AUTO) 100 %; WHITE BLOOD COUNT 7.2 10^3/uL (4.0-10.5)
[2019-05-27 05:22] LABS: ANION GAP 7 (5-19); BLOOD UREA NITROGEN 7 mg/dL (7-20); CALCIUM 8.4 mg/dL (8.4-10.2); CARBON DIOXIDE 27 mmol/L (22-30); CHLORIDE 104 mmol/L (98-107); CHOLESTEROL 146.74 mg/dL (0-200); GLUCOSE 92 mg/dL (75-110); POTASSIUM 3.2 mmol/L (3.6-5.0); SODIUM 137.9 mmol/L (137-145); TRIGLYCERIDES 91 mg/dL (<150)
[2019-05-27 05:33] LABS: DIRECT LDL 72 mg/dL (<100)
--- NOTE | 2019-05-27 10:31 | EKG REPORT ---
SEVERITY:- ABNORMAL ECG - SINUS RHYTHM LEFT BUNDLE BRANCH BLOCK : Confirmed by: Zayda Jones MD 27-May-2019 10:30:15
--- NOTE | 2019-05-27 10:31 | RADIOLOGY REPORT (SQ) ---
EXAM DESCRIPTION: CHEST SINGLE VIEW COMPLETED DATE/TIME: 05/27/2019 10:17 am REASON FOR STUDY: dyspnea COMPARISON: 05/26/2019 EXAM PARAMETERS: NUMBER OF VIEWS: One view. TECHNIQUE: Single frontal radiographic view of the chest acquired. RADIATION DOSE: NA LIMITATIONS: None. FINDINGS: LUNGS AND PLEURA: Improved aeration at the right lung base. No focal airspace disease, pl eural effusion or pneumothorax. MEDIASTINUM AND HILAR STRUCTURES: No masses. Contour normal. HEART AND VASCULAR STRUCTURES: Heart normal in size. Normal vasculature. BONES: No acute findings. HARDWARE: None in the chest. OTHER: No other significant finding. IMPRESSION: No evidence of focal airspace disease or other acute cardiopulmonary process. Improved aeration at the right lung base compared to prior. TECHNICAL DOCUMENTATION: JOB ID: [id number] [employer]- All Rights Reserved Reading location - IP/workstation name: [email or web address]
[2019-05-27] MEDS: FERROUS SULFATE 325 MG TABLET PO SCH (11:09)
[2019-05-27] MEDS: ASCORBIC ACID 500 MG TABLET PO SCH (11:10)
[2019-05-27] MEDS: DOCUSATE SODIUM 100 MG CAPSULE PO SCH ×2 (11:11→19:01)
[2019-05-27] MEDS: FAMOTIDINE 20 MG TABLET PO SCH ×2 (11:11→21:05)
[2019-05-27] MEDS: ENOXAPARIN SODIUM INJ 40 MG/0.4 ML DISP.SYRIN SUBCUT SCH (11:12)
[2019-05-27] MEDS: FUROSEMIDE 20 MG TABLET PO SCH (11:13)
[2019-05-27] MEDS: ACETAMINOPHEN 325 MG TABLET PO PRN (11:16)
[2019-05-27] MEDS ORDERED: POTASSIUM CHLORIDE 10 MEQ CAPSULE.ER PO ONE ×2 (12:58→15:00)
--- NOTE | 2019-05-27 13:59 | PDOC PROGRESS REPORT ---
Subjective Progress Note for:: 05/27/19 Subjective:: Very pleasant 43-year-old female with no significant past medical history awoke with chest discomfort shortness of breath found to be in acute pulmonary edema. At this time patient has no complaints we are awaiting results of echocardiogram. Patient states breathing is much easier at this time. Reason For Visit: ACCELERATED HYPERTENSION, DYSPNEA Physical Exam Vital Signs: Temp Pulse Resp BP Pulse Ox 97.9 F 84 16 135/89 H 95 05/27/19 08:32 05/27/19 08:32 05/27/19 08:32 05/27/19 08:32 05/27/19 08:32 Intake & Output 05/26/19 05/27/19 05/28/19 06:59 06:59 06:59 Intake Total 43 266 Balance 43 266 Weight 83.915 kg 83.6 kg General appearance: PRESENT: no acute distress, well-developed, well-nourished Head exam: PRESENT: atraumatic, normocephalic Eye exam: PRESENT: conjunctiva pink, EOMI, PERRLA. ABSENT: scleral icterus Ear exam: PRESENT: normal external ear exam Mouth exam: PRESENT: moist, tongue midline Neck exam: ABSENT: carotid bruit, JVD, lymphadenopathy, thyromegaly Respiratory exam: PRESENT: clear to auscultation daisy. ABSENT: rales, rhonchi, wheezes Cardiovascular exam: PRESENT: RRR. ABSENT: diastolic murmur, rubs, systolic murmur Pulses: PRESENT: normal dorsalis pedis pul Vascular exam: PRESENT: normal capillary refill GI/Abdominal exam: PRESENT: normal bowel sounds, soft. ABSENT: distended, guarding, mass, organolmegaly, rebound, tenderness Rectal exam: PRESENT: deferred Extremities exam: PRESENT: full ROM. ABSENT: calf tenderness, clubbing, pedal edema Neurological exam: PRESENT: alert, awake, oriented to person, oriented to place, oriented to time, oriented to situation, CN II-XII grossly intact. ABSENT: motor sensory deficit Psychiatric exam: PRESENT: appropriate affect, normal mood. ABSENT: homicidal ideation, suicidal ideation Skin exam: PRESENT: dry, intact, warm. ABSENT: cyanosis, rash Results Laboratory Results: 05/27/19 04:20 05/27/19 04:20 05/27/19 05/27/19 04:20 04:20 WBC 7.2 RBC 4.31 Hgb 9.3 L Hct 29.1 L MCV 68 L MCH 21.6 L MCHC 32.0 RDW 19.2 H Plt Count 269 Seg Neutrophils % 65.4 Lymphocytes % 22.6 Monocytes % 8.1 Eosinophils % 2.8 Basophils % 1.1 Absolute Neutrophils 4.7 Absolute Lymphocytes 1.6 Absolute Monocytes 0.6 Absolute Eosinophils 0.2 Absolute Basophils 0.1 Sodium 137.9 Potassium 3.2 L Chloride 104 Carbon Dioxide 27 Anion Gap 7 BUN 7 Creatinine 0.74 Est GFR ( Amer) > 60 Est GFR (Non-Af Amer) > 60 Glucose 92 Calcium 8.4 Magnesium 1.7 Triglycerides 91 Cholesterol 146.74 LDL Cholesterol Direct 72 VLDL Cholesterol 18.0 HDL Cholesterol 44 05/26/19 05/26/19 05/26/19 02:26 04:28 04:28 Creatine Kinase CK-MB (CK-2) Troponin I < 0.012 0.013 NT-Pro-B Natriuret Pep 412 H 05/26/19 05/26/19 05/26/19 11:59 11:59 17:36 Creatine Kinase 145 H 123 CK-MB (CK-2) 1.77 Troponin I 0.035 NT-Pro-B Natriuret Pep 05/26/19 05/27/19 17:36 04:20 Creatine Kinase CK-MB (CK-2) 1.50 Troponin I 0.036 NT-Pro-B Natriuret Pep 745 H Impressions: Chest/Abdomen CTA 05/26/19 03:07 IMPRESSION: No aortic dissection or aneurysm. No pulmonary embolus. Pleural effusions with mild pulmonary edema. Bibasilar groundglass opacities may reflect component of edema versus superimposed pneumonia. Chest X-Ray 05/27/19 10:00 IMPRESSION: No evidence of focal airspace disease or other acute cardiopulmonary process. Improved aeration at the right lung base compared to prior. Assessment and Plan - Diagnosis (1) Acute respiratory failure with hypoxia Is this a current diagnosis for this admission?: Yes Plan: On admission to the emergency department the patient's oxygen saturation did drop to 89% on room air. She was placed on 2 L nasal cannula oxygen with an excellent response. By the time of this encounter she was breathing more comfortably. 05/27/2019-patient is off nasal cannula at this time with O2 sat of 95%. We will continue to follow (2) Hypertensive crisis Is this a current diagnosis for this admission?: Yes Plan: Blood pressure in the emergency department was as high as 181/139. The patient was placed on nitroglycerin infusion. Aside from a headache it made a significant improvement in her blood pressure. I will start oral medications in effort to wean her from the nitroglycerin infusion. She will be on metoprolol, losartan and furosemide. I have also started aspirin 81 mg daily. She will have serial troponins as well. If discomfort returns we will add nitroglycerin paste or oral nitrates. 05/27/2019-improved at this time patient with systolic in the 135 range. Continue home medications patient is off nitroglycerin drip at this time. We will continue metoprolol losartan and Lasix. (3) Pulmonary edema Qualifiers: Chronicity: acute Qualified Code(s): J81.0 - Acute pulmonary edema Is this a current diagnosis for this admission?: Yes Plan: She has no history of failure and does not appear to have a primary pulmonary process such as pneumonia. We will continue furosemide and monitor her intake and output. 05/27/2019-continue Lasix this time awaiting echocardiogram results. (4) Hypokalemia Is this a current diagnosis for this admission?: Yes Plan: 05/27/2019-potassium 3.2 this morning. Will give 40 mg KCl p.o. x1 and repeat BMP in the a.m. - Time Time Spent with patient: 15-24 minutes - Inpatient Certification I certify that my determination is in accordance with my understanding of Medicare's requirements for reasonable and necessary INPATIENT services [42 CFR 412.3e].: Yes Medical Necessity: Other - Continue to diurese as acute just of heart failure awaiting echocardiogram.
[2019-05-27] MEDS: METOPROLOL TARTRATE 25 MG TABLET PO SCH (15:09)
[2019-05-27] MEDS: LOSARTAN POTASSIUM 25 MG TABLET PO SCH ×2 (15:10→21:05)
[2019-05-27] MEDS: ASPIRIN 81 MG TABLET, ENT COATED PO SCH (21:05)
--- NOTE | 2019-05-27 22:45 | XCELERA REPORT ---
[address] [address] Transthoracic Echocardiogram Report Name: LUZ MARIA OLIVEIRA Age: 43 yrs Gender: Female : 1975 Patient Status: Inpatient Patient Location: [address] [place], [place] [address] Study Date: 05/26/2019 07:06 PM Height: 64 in Weight: 185 lb BSA: 1.9 m2 Procedure: A two-dimensional transthoracic echocardiogram with color flow and Doppler was performed. The study was technically difficult with many images being suboptimal in quality. Images were not obtained from all of the standard acoustic windows due to the limited scope of the study. Reason For Study: new murmur, pulm edema History: new murmur, pulm edema. Ordering Physician: DANIELE CHAPPELL Performed By: Kimmie Black Interpretation Summary The left ventricle is normal in size. No True apical 2 chamber views obtained.Hence cannot comment on the apical anterior , the basal anterior, the basal inferior and apical inferior clarke.The mid anterior , the mid inferior and the rest of the LV clarke contract normally. .Normal LVEF is normal and is greater than 55% in the limited views. Doppler measurements suggest impaired left ventricular relaxation, which is associated with grade I/IV or mild diastolic dysfunction There is no thrombus. Unable to assess ASD,VSD , or PFO. The right ventricle is not well visualized secondary to technical limitations Right atrium not well visualized secondary to technical limitations The left atrial size is normal. There is no evidence of mitral valve prolapse. There is no vegetation seen on the mitral valve. There is no mitral valve stenosis. There is a moderate amount of mitral regurgitation There is no aortic valvular vegetation. There is no aortic valve stenosis There is no LVOT obstruction. No aortic regurgitation is present. There is no tricuspid stenosis. There is a trace to mild amount of tricuspid regurgitation There is mild pulmonary hypertension by echo RVSP is 32 to 37 mm of Hg , with RA mean of 5 to 10. There is no pulmonic valvular stenosis. There is no pulmonic valvular regurgitation. The aortic root is not well visualized. The inferior vena cava appeared normal and decreased > 50% with respiration (RAP 5-10 mmHg) There is no pericardial effusion. MMode/2D Measurements & Calculations RVDd: 2.6 cm LVIDd: 4.3 cm FS: 32.4 % Ao root diam: 2.8 cm IVSd: 0.91 cm LVIDs: 2.9 cm EDV(Teich): Ao root area: LVPWd: 1.0 cm 83.0 ml 6.0 cm2 ESV(Teich): LA dimension: 3.5 cm 32.3 ml EF(Teich): 61.0 % LVLd ap4: 5.5 cm SV(MOD-sp4): EDV(MOD-sp4): 31.0 ml 51.0 ml LVLs ap4: 4.8 cm ESV(MOD-sp4): 20.0 ml EF(MOD-sp4): 60.8 % Doppler Measurements & Calculations MV E max james: MV P1/2t max james: Ao V2 max: LV V1 max P.7 cm/sec 118.1 cm/sec 145.2 cm/sec 4.8 mmHg MV A max james: MV P1/2t: 37.4 msec Ao max PG: LV V1 max: 114.1 cm/sec MVA(P1/2t): 5.9 cm2 8.4 mmHg 109.7 cm/sec MV E/A: 0.87 MV dec slope: 925.2 cm/sec2 MV dec time: 0.19 sec MR max james: PA V2 max: TR max james: MV P1/2t-pr_phl: 554.4 cm/sec 134.4 cm/sec 257.9 cm/sec 37.4 msec MR max PG: PA max P.2 mmHg TR max P.9 mmHg 26.6 mmHg Left Ventricle The left ventricle is normal in size. There is normal left ventricular wall thickness. No True apical 2 chamber views obtained.Hence cannot comment on the apical anterior , the basal anterior, the basal inferior and apical inferior clarke.The mid anterior , the mid inferior and the rest of the LV clarke contract normally. .Normal LVEF is normal and is greater than 55% in the limited views. Doppler measurements suggest impaired left ventricular relaxation, which is associated with grade I/IV or mild diastolic dysfunction. There is no thrombus. Unable to assess ASD,VSD , or PFO. Right Ventricle The right ventricle is not well visualized secondary to technical limitations. Atria Right atrium not well visualized secondary to technical limitations. The left atrial size is normal. Mitral Valve There is no evidence of mitral valve prolapse. There is no vegetation seen on the mitral valve. There is no mitral valve stenosis. There is a moderate amount of mitral regurgitation. Aortic Valve There is no aortic valvular vegetation. There is no aortic valve stenosis. There is no LVOT obstruction. No aortic regurgitation is present. Tricuspid Valve There is no tricuspid stenosis. There is a trace to mild amount of tricuspid regurgitation. There is mild pulmonary hypertension by echo. RVSP is 32 to 37 mm of Hg , with RA mean of 5 to 10. Pulmonic Valve There is no pulmonic valvular stenosis. There is no pulmonic valvular regurgitation. Great Vessels The aortic root is not well visualized. The inferior vena cava appeared normal and decreased > 50% with respiration (RAP 5-10 mmHg). Effusions There is no pericardial effusion. : DANIELE CHAPPELL > Zayda Jones
[2019-05-28 05:53] LABS: ANION GAP 6 (5-19); BLOOD UREA NITROGEN 9 mg/dL (7-20); CALCIUM 8.4 mg/dL (8.4-10.2); CARBON DIOXIDE 28 mmol/L (22-30); CHLORIDE 105 mmol/L (98-107); GLUCOSE 83 mg/dL (75-110); POTASSIUM 3.5 mmol/L (3.6-5.0); SODIUM 139.1 mmol/L (137-145)
--- NOTE | 2019-05-28 06:48 | Progress Note Acknowledgement ---
Progress Note Acknowledgement Progess Note Acknowledgement: I, the undersigned member of the medical staff with appropriate privileges and with supervisory authority over Adrian Francis, a [facility] practice allied health professional, acknowledge that I have reviewed the progress notes entered on this patient, and in my professional judgment believe that the assessment made and/or any care evidenced was appropriate
[2019-05-28] MEDS: FUROSEMIDE 20 MG TABLET PO SCH (11:28)
[2019-05-28] MEDS: DOCUSATE SODIUM 100 MG CAPSULE PO SCH (11:28)
[2019-05-28] MEDS: LOSARTAN POTASSIUM 25 MG TABLET PO SCH (11:29)
[2019-05-28] MEDS: FAMOTIDINE 20 MG TABLET PO SCH (11:29)
[2019-05-28] MEDS: ASCORBIC ACID 500 MG TABLET PO SCH (11:29)
[2019-05-28] MEDS: FERROUS SULFATE 325 MG TABLET PO SCH (11:29)
[2019-05-28] MEDS: ENOXAPARIN SODIUM INJ 40 MG/0.4 ML DISP.SYRIN SUBCUT SCH (11:30)
--- NOTE | 2019-05-28 11:44 | PDOC DISCHARGE SUMMARY ---
General - Admit/Disc Date/PCP Admission Date/Primary Care Provider: 05/26/19 06:43 No primary care Discharge Date: 05/28/19 - Discharge Diagnosis (1) Acute respiratory failure with hypoxia Is this a current diagnosis for this admission?: Yes (2) Hypertensive crisis Is this a current diagnosis for this admission?: Yes (3) Pulmonary edema Is this a current diagnosis for this admission?: Yes (4) Hypokalemia Is this a current diagnosis for this admission?: Yes - Additional Information Resuscitation Status: Full Code Discharge Diet: Cardiac Discharge Activity: Activity As Tolerated, Weigh Daily Prescriptions: Aspirin [Ecotrin 81 mg EC Tablet] 81 mg PO QHS #30 tabec Ferrous Sulfate [Feosol 325 mg Tablet] 325 mg PO DAILY #30 tablet Furosemide [Lasix 20 mg Tablet] 20 mg PO DAILY #30 tablet Losartan Potassium [Cozaar 25 mg Tablet] 25 mg PO Q12 #60 tablet Home Medications: Aspirin [Ecotrin 81 mg EC Tablet] 81 mg PO QHS #30 tabec 05/28/19 Ferrous Sulfate [Feosol 325 mg Tablet] 325 mg PO DAILY #30 tablet 05/28/19 Furosemide [Lasix 20 mg Tablet] 20 mg PO DAILY #30 tablet 05/28/19 Losartan Potassium [Cozaar 25 mg Tablet] 25 mg PO Q12 #60 tablet 05/28/19 History of Present Illness Patient complains of: None History of Present Illness: LUZ MARIA OLIVEIRA is a 43 year old female who presented to ER with hypertensive crisis shortness of breath was found to have acute pulmonary edema most likely secondary to her hypertensive crisis. Patient was admitted treated with Lasix echocardiogram showed an ejection fraction greater than 55%. Patient blood pressure in ER was in the 180s over 100s range at this time is 130s over 80s. Patient was placed on losartan, Lasix and metoprolol. We will continue antihypertensives patient will be seen at the [facility] clinic for follow- up. Patient agrees with plan of care. Hospital Course Hospital Course: Ms. Valentine was admitted underwent cardiac testing with serial troponins which were negative and echocardiogram showing a preserved LV function with mild tricuspid regurg. Patient was treated for her hypertensive crisis with antihypertensives with good response as well as her poor edema with Lasix also with good response. At this time patient has no shortness of breath or chest pain at this time. I have discussed with patient plan to send her home continue antihypertensives and have her seen at [facility] at that which point they can set up for a cardiology consult. Patient is in agreement with plan of care and follow-up. Physical Exam Vital Signs: Temp Pulse Resp BP Pulse Ox 98.6 F 75 15 138/89 H 97 05/28/19 07:18 05/28/19 07:18 05/28/19 07:18 05/28/19 07:18 05/28/19 07:18 Intake & Output 05/27/19 05/28/19 05/29/19 06:59 06:59 06:59 Intake Total 266 388 Balance 266 388 Weight 83.6 kg 82.7 kg General appearance: PRESENT: no acute distress, well-developed, well-nourished Neck exam: ABSENT: carotid bruit, JVD, lymphadenopathy, thyromegaly Respiratory exam: PRESENT: clear to auscultation daisy. ABSENT: rales, rhonchi, wheezes Cardiovascular exam: PRESENT: RRR. ABSENT: diastolic murmur, rubs, systolic murmur Pulses: PRESENT: normal dorsalis pedis pul Vascular exam: PRESENT: normal capillary refill GI/Abdominal exam: PRESENT: normal bowel sounds, soft. ABSENT: distended, guarding, mass, organolmegaly, rebound, tenderness Extremities exam: PRESENT: full ROM. ABSENT: calf tenderness, clubbing, pedal edema Neurological exam: PRESENT: alert, awake, oriented to person, oriented to place, oriented to time, oriented to situation, CN II-XII grossly intact. ABSENT: motor sensory deficit Psychiatric exam: PRESENT: appropriate affect, normal mood. ABSENT: homicidal ideation, suicidal ideation Skin exam: PRESENT: dry, intact, warm. ABSENT: cyanosis, rash Results Laboratory Results: 05/27/19 04:20 05/28/19 04:43 05/28/19 04:43 Sodium 139.1 Potassium 3.5 L Chloride 105 Carbon Dioxide 28 Anion Gap 6 BUN 9 Creatinine 0.74 Est GFR ( Amer) > 60 Est GFR (Non-Af Amer) > 60 Glucose 83 Calcium 8.4 05/26/19 05/26/19 05/26/19 02:26 04:28 04:28 Creatine Kinase CK-MB (CK-2) Troponin I < 0.012 0.013 NT-Pro-B Natriuret Pep 412 H 05/26/19 05/26/19 05/26/19 11:59 11:59 17:36 Creatine Kinase 145 H 123 CK-MB (CK-2) 1.77 Troponin I 0.035 NT-Pro-B Natriuret Pep 05/26/19 05/27/19 17:36 04:20 Creatine Kinase CK-MB (CK-2) 1.50 Troponin I 0.036 NT-Pro-B Natriuret Pep 745 H Impressions: Chest/Abdomen CTA 05/26/19 03:07 IMPRESSION: No aortic dissection or aneurysm. No pulmonary embolus. Pleural effusions with mild pulmonary edema. Bibasilar groundglass opacities may reflect component of edema versus superimposed pneumonia. Chest X-Ray 05/27/19 10:00 IMPRESSION: No evidence of focal airspace disease or other acute cardiopulmonary process. Improved aeration at the right lung base compared to prior. Qualifiers - * PATIENT BEING DISCHARGED WITH ANY OF THE FOLLOWING DIAGNOSIS: No Acute Heart Failure - Is this a Heart Failure Patient?: Yes Documentation of LVEF assessment?: Yes LVEF < 40%?: No- if no continue to question #3 3. Anticoagulant therapy for permanect/persistent/paraoxysmal Afib or Aflutter: N/A Follow-up Appointment scheduled within 7 days?: Yes Plan Time Spent: Greater than 30 Minutes
[2019-05-28 14:00] VITALS: BP 149/86
[2019-05-28] MEDS ORDERED: ONDANSETRON 4 MG TAB.RAPDIS PO PRN (15:30)
== END 2019-05-28 15:25 | disposition home or self-care (01) | DRG 304 ==
LOC: ER 02:03 → UNDOADMIN 06:43 → EH 06:43 → 3N 15:29
PROVIDERS: ADMIT Hospitalist; ATTEND Internal Medicine
DX: I16.0 Hypertensive urgency (principal); J81.0 Acute pulmonary edema; J96.01 Acute respiratory failure with hypoxia; I10 Essential (primary) hypertension; E87.6 Hypokalemia
CPT/HCPCS: 36415; 71045; 71275; 80048; 80053; 80061; 80307; 81001; 82550; 82553; 82607; 82728; 82746; 83540; 83550; 83735; 83880; 84439; 84443; 84481; 84484; 84703; 85025; 85045; 85610; 85730; 93005; 93010; 93306; J1650; J3490; S0119

== ENCOUNTER → 2020-05-24 | Outpatient (CLI) | payer SELFPAY ==
[2020-05-24 10:56] VITALS: BP 171/94
--- NOTE | 2020-05-24 10:56 | ER [facility] ASSESSMENT REPORT ---
Intake - In the Last 14 days Have you traveled outside [place]?: No Have you been in close contact with someone CONFIRMED: Yes Worked in Healthcare?: No - Symptoms Subjective Fever([place] feverish): No Chills: No Muscule Aches: No Runny Nose: No Sore Throat: No Cough (New or worsening chronic cough): No Shortness of breath: No Nausea or Vomiting: No Headache: No Abdominal Pain: No Diarrhea(3 or more loose stools in last 24 hours): No - Do you have any of the following Chronic lung disease: Asthma or emphysema or COPD: No Cystic Fibrosis: No Diabetes: No High Blood Pressure: Yes Cardiovascular Disease: Yes Chronic Kidney Disease: No Chronic Liver Disease: No Chronic blood disorder like Sickle Cell Disease: No Weak immune system due to disease or medication: No Neurologic condition that limits movement: No Developmental delay - Moderate to Severe: No Recent (within past 2 weeks) or current : No Morbid Obesity (>100 pounds over ideal weight): No - Objective Temperature: 97.8 F Pulse Rate: 77 Respiratory Rate: 18 Blood Pressure: 171/94 O2 Sat by Pulse Oximetry: 97 Objective: Given above, testing performed: If Testing Performed: Test Specimen Type Sent to General - General Notes: Patient presents to the [facility] for screening for the coronavirus. Patient denies any symptoms although states that she did have a recent exposure to someone who did test positive. Patient does have an underlying history of hypertension and cardiovascular disease. Patient does not work in healthcare. - HPI Associated symptoms: denies: Nonproductive cough, Shortness of breath Exacerbated by: Denies Relieved by: Denies Similar symptoms previously: No - Related Data Allergies/Adverse Reactions: No Known Allergies Allergy (Unverified 11/11/17 16:47) Past Medical History - General Information source: Patient - Social History Smoking Status: Never Smoker Occupation: None Family History: Hypertension, Other - Congestive heart failure - Past Medical History Cardiac Medical History: Reports: Hx Hypertension Denies: Hx Atrial Fibrillation, Hx Congestive Heart Failure, Hx Heart Attack, Hx Heart Murmur Pulmonary Medical History: Denies: Hx Asthma, Hx COPD, Hx Respiratory Failure Endocrine Medical History: Denies: Hx Diabetes Mellitus Type 1, Hx Diabetes Mellitus Type 2, Hx Hyperthyroidism, Hx Hypothyroidism Renal/ Medical History: Denies: Hx Peritoneal Dialysis GI Medical History: Denies: Hx Crohn's Disease, Hx Hepatitis, Hx Hiatal Hernia, Hx Ulcerative Colitis Psychiatric Medical History: Denies: Hx Depression Infectious Medical History: Denies: Hx Hepatitis Surgical Hx: Negative Physical Exam - Notes Notes: Full physical exam could not be performed due to covid 19 isolation protocols. Constitutional: Nontoxic appearance, no acute distress Eyes: Nonicteric, extraocular movements intact, sclera clear Cardiovascular: Heart rate and rhythm regular, no JVD Respiratory: Sounds clear bilaterally, nonlabored breathing, no use of accessory muscles, no tachypnea Gastrointestinal: Abdomen not distended Muculoskeletal: Moves all extremities well Skin: Normal color Neuro: Awake alert oriented, normal speech Psych: Normal mood and affect Diagnostic Results Laboratory Results: The patient was evaluated during the global Covid 19 pandemic, and that diagnosis was suspected/considered upon their initial presentation. Their evaluation, treatment and testing was consistent with current guidelines for patients who present with complaints or symptoms that may be related to Covid 19. Patient presents with for screening for possible Covid 19. Patient does not have emergency worrying symptoms such as difficulty breathing, shortness of breath, chest pain, pressure, confusion or cyanosis. Patient appears suitable for discharge as they are not of an advanced age, do not have any chronic medical conditions such as diabetes, immune deficiency, chronic lung disease or chronic kidney disease. Patient's vital signs are stable and patient is nontoxic in appearance. Good return precautions have been discussed with patient, patient verbalized understanding and is agreeable with discharge plan of care at this time. Patient Education/Counseling Counseling/Education: Patient was provided with discharge information including: As a person under investigation for Covid 19, the [place] department of Health and Human Services, division of public health advises you to adhere to the following guidance until your test results are reported to you. If your test result is positive, you will receive additional information from your provider and your local health department at that time. Remain at home until you are cleared by the health provider or public health authorities. Keep a log of visitors to your home, notify any visitors to your home of your isolation status. If you plan to move to a new address or leave the county, notify the local health department in your County. Call your doctor or seek care if you have an urgent medical need. Before seeking medical care, call ahead to get instructions from the provider before arriving at the medical office clinic or hospital. Notify them that you are being tested for the virus that causes Covid 19 so that arrangements can be made, as necessary, to prevent transmission to others in the healthcare setting. Next, notify the local health department in your county. If a medical emergency arises and you need to call 911, inform the first responders that you are being tested for the virus that causes Covid 19. Next, notify the local health department in your county. [facility] Discharge - Discharge Clinical Impression: Encounter for screening laboratory testing for COVID-19 virus Condition: Stable Disposition: Home; Selfcare
[2020-05-24 11:18] LABS: A TYPE INFLUENZA AG NEGATIVE (NEGATIVE); B INFLUENZA AG NEGATIVE (NEGATIVE)
== END ==
LOC: RDC 09:50 → EDRDC 09:50 → EDSTATUS 09:54
PROVIDERS: ATTEND Nurse Practitioner Family
DX: Z20.828 Contact with and (suspected) exposure to other viral communicable diseases (principal); I10 Essential (primary) hypertension
CPT/HCPCS: 87070; 87880; 87635; 87804; C9803; 99201; 99211

== ENCOUNTER 2020-08-09 11:26 | Emergency (ER) | payer SELFPAY ==
--- NOTE | 2020-08-09 14:13 | ER Document Report ---
ED Headache - General Chief Complaint: Blood Pressure Problem Stated Complaint: HEADACHE Time Seen by Provider: 08/09/20 13:59 Primary Care Provider: ANUP LEE MD [Primary Care Provider] - Follow up as needed Notes: CHIEF COMPLAINT: Headache blurred vision requesting medication change HPI: 44-year-old female with a history of hypertension presenting to the emergency department today complaining of a right-sided headache that is been fairly constant over the last 4 days. Reports that she has had occasional blurred vision over the last month or 2. Patient states that she was switched from losartan to lisinopril and it was making her hair fall out so she stopped the medication 6 weeks ago. Did not call her PCP to discuss the change or stopping of her medications. Denies chest pain shortness of breath. Denies difficulty with urination. Denies weakness numbness or tingling in the extremities., Positive headache ROS: See HPI - all other systems were reviewed and are otherwise negative Constitutional: no fever Eyes: no drainage, positive blurred vision, not currently ENT: no runny nose, no sore throat Cardiovascular: no chest pain Resp: no SOB, no cough GI: no vomiting, no diarrhea, no abdominal pain : no dysuria Integumentary: no rash Allergy: no hives Musculoskeletal: no extremity pain or swelling Neurological: no numbness/tingling, no weakness MEDICATIONS: I agree with the patient medications as charted by the RN. ALLERGIES: I agree with the allergies as charted by the RN. PAST MEDICAL HISTORY/PAST SURGICAL HISTORY: Reviewed and agree as charted by RN. SOCIAL HISTORY: Reviewed and agree as charted by RN. FAMILY HISTORY: No significant familial comorbid conditions directly related to patient complaint EXAM: Reviewed vital signs as charted by RN. CONSTITUTIONAL: Alert and oriented and responds appropriately to questions. Well-appearing; well-nourished HEAD: Normocephalic; atraumatic EYES: PERRL; Conjunctivae clear, sclerae non-icteric. Funduscopic exam does not reveal evidence of disc edema or hemorrhage ENT: normal nose; no rhinorrhea; moist mucous membranes; pharynx without lesions noted, no uvula edema or deviation, no tonsillar hypertrophy, phonation normal NECK: Supple without meningismus; non-tender; no cervical lymphadenopathy, no masses CARD: RRR; no murmurs, no clicks, no rubs, no gallops; symmetric distal pulses RESP: Normal chest excursion without splinting or tachypnea; breath sounds clear and equal bilaterally; no wheezes, no rhonchi, no rales, pulse oximetry 99% on room air not hypoxic ABD/GI: Normal bowel sounds; non-distended; soft, non-tender, no rebound, no guarding; no palpable organomegaly or masses. BACK: The back appears normal and is non-tender to palpation, there is no CVA tenderness EXT: Normal ROM in all joints; no cyanosis, no effusions, no edema SKIN: Normal color for age and race; warm; dry; good turgor; no acute lesions noted NEURO: Moves all extremities equally; Motor and sensory function intact PSYCH: The patient's mood and manner are appropriate. Grooming and personal hygiene are appropriate. MDM: 44-year-old female presenting for right-sided headache for 4 days, occasional blurring of vision not currently. Stopped her blood pressure medication 6 weeks ago. Will obtain EKG baseline BMP for kidney function, CT of the head to evaluate for bleed. Patient would like to be started back on losartan as she stopped lisinopril. She did not notify her PCP. Patient will call her pharmacy to obtain her dosing schedule for losartan. TRAVEL OUTSIDE OF THE [place] IN LAST 30 DAYS: No - Related Data Allergies/Adverse Reactions: No Known Allergies Allergy (Verified 08/09/20 13:52) Past Medical History - Social History Smoking Status: Never Smoker Family History: Hypertension, Other - Congestive heart failure Patient has homicidal ideation: No - Past Medical History Cardiac Medical History: Reports: Hx Hypertension Denies: Hx Atrial Fibrillation, Hx Congestive Heart Failure, Hx Heart Attack, Hx Heart Murmur Pulmonary Medical History: Denies: Hx Asthma, Hx COPD, Hx Respiratory Failure Endocrine Medical History: Denies: Hx Diabetes Mellitus Type 1, Hx Diabetes Mellitus Type 2, Hx Hyperthyroidism, Hx Hypothyroidism Renal/ Medical History: Denies: Hx Peritoneal Dialysis GI Medical History: Denies: Hx Crohn's Disease, Hx Hepatitis, Hx Hiatal Hernia, Hx Ulcerative Colitis Psychiatric Medical History: Denies: Hx Depression Infectious Medical History: Denies: Hx Hepatitis Physical Exam - Vital signs Vitals: Temp Pulse Resp BP Pulse Ox 98.4 F 90 20 150/102 H 98 08/09/20 12:56 08/09/20 12:56 08/09/20 12:56 08/09/20 12:56 08/09/20 12:56 Course - Re-evaluation Re-evalutation: 08/09/20 15:41 EKG normal sinus rhythm with a ventricular rate of 70. Left bundle branch block unchanged from prior EKG 2019. [place] 160 QT 432 QTC 467. Interpreted by emergency department physician. No other visible ectopy. CT imaging does not show acute abnormalities. 08/09/20 15:43 Chemistry is negative for acute findings. 08/09/20 16:13 Spoke with the patient she is called her pharmacy she takes losartan 50 mg twice daily that was the prescribed dose that she finished on prior to being switched to new medications. She has also taken Lasix 20 mg daily and metoprolol 25 mg twice daily previously. Given that she has switched herself off of her medications and has not been on medicine for 6 weeks, has not called her primary care provider about this will restart the patient on losartan at her prior dose 50 mg twice daily we will hold the other medications pending her follow-up with her PCP to discuss her medication management - Vital Signs Vital signs: Temp Pulse Resp BP Pulse Ox 98.4 F 90 20 150/102 H 98 08/09/20 12:56 08/09/20 12:56 08/09/20 12:56 08/09/20 12:56 08/09/20 12:56 - Laboratory Result Diagrams: 08/09/20 14:59 Discharge - Discharge Clinical Impression: Medication refill HTN (hypertension) Qualifiers: Hypertension type: essential hypertension Qualified Code(s): I10 - Essential (primary) hypertension Headache Qualifiers: Headache type: unspecified Headache chronicity pattern: unspecified pattern In tractability: not intractable Qualified Code(s): R51 - Headache Condition: Stable Disposition: HOME, SELF-CARE Additional Instructions: Take your blood pressure medications as prescribed. Check your blood pressure twice daily so that you know where your blood pressure generally runs and can follow-up with your primary care provider regarding whether they wish to continue on these medications or not. Prescriptions: Losartan Potassium 50 mg PO BID #30 tablet Referrals: ANUP LEE MD [Primary Care Provider] - Follow up as needed
--- NOTE | 2020-08-09 15:07 | RADIOLOGY REPORT (SQ) ---
EXAM DESCRIPTION: CT HEAD WITHOUT IMAGES COMPLETED DATE/TIME: 08/09/2020 2:42 pm REASON FOR STUDY: headache htn COMPARISON: None. TECHNIQUE: Axial images acquired through the brain without intravenous contrast. Images reviewed wi th bone, brain and subdural windows. Additional sagittal and coronal reconstructions were generated. Images stored on PACS. All CT scanners at this facility use dose modulation, iterative reconstruction, and/or weight based d osing when appropriate to reduce radiation dose to as low as reasonably achievable (ALARA). [facility]: Dose Right [facility]: CareDose [facility]: Dose Right [facility]: Teradose 4D [facility]: Smart Skulpt RADIATION DOSE: CT Rad equipment meets quality standard of care and radiation dose reduction techniq ues were employed. CTDIvol: 53.2 mGy. DLP: 991 mGy-cm. LIMITATIONS: None. FINDINGS: VENTRICLES: Normal size and contour. The cisterns are patent. CEREBRUM: No masses. No hemorrhage. No midline shift. No evidence for acute infarction. Normal gra y/white matter differentiation. No areas of low density in the white matter. CEREBELLUM: No masses. No hemorrhage. No alteration of density. No evidence for acute infarction. EXTRAAXIAL SPACES: No fluid collections. No masses. ORBITS AND GLOBE: No intra- or extraconal masses. Normal contour of globe without masses. CALVARIUM: No fracture. PARANASAL SINUSES: No fluid or mucosal thickening. Deviation of the nasal septum to the right of th e midline. SOFT TISSUES: No mass or hematoma. OTHER: Adenoidal tissue is prominent. IMPRESSION: 1. No acute intracranial abnormality. 2. Adenoidal tissue is prominent. 3. Deviation of the nasal septum to the right of the midline. EVIDENCE OF ACUTE STROKE: NO. COMMENT: Quality ID # [id number]: Final reports with documentation of one or more dose reduction techniques (e.g., Automated exposure control, adjustment of the mA and/or kV according to patient size, use of iterative reconstruction technique) TECHNICAL DOCUMENTATION: JOB ID: [id number] 2010 [employer]- All Rights Reserved Reading location - IP/workstation name: [email or web address]
[2020-08-09 15:34] LABS: ANION GAP 5 (5-19); BLOOD UREA NITROGEN 13 mg/dL (7-20); CALCIUM 9.1 mg/dL (8.4-10.2); CARBON DIOXIDE 28 mmol/L (22-30); CHLORIDE 106 mmol/L (98-107); GLUCOSE 92 mg/dL (75-110)
[2020-08-09] MEDS ORDERED: LOSARTAN POTASSIUM 50 MG TABLET PO ONE (16:13)
[2020-08-09 16:47] VITALS: BP 172/84
--- NOTE | 2020-08-10 01:38 | EKG REPORT ---
SEVERITY:- ABNORMAL ECG - SINUS RHYTHM PROBABLE LEFT ATRIAL ABNORMALITY LEFT BUNDLE BRANCH BLOCK : Confirmed by: Zayda Jones MD 10-Aug-2020 01:37:49
== END 2020-08-09 16:46 | disposition home or self-care (01) ==
LOC: ER 11:26
DX: I10 Essential (primary) hypertension (principal); T46.4X6A Underdosing of angiotensin-converting-enzyme inhibitors, initial encounter; Z91.128 Patient's intentional underdosing of medication regimen for other reason; Z91.14 Patient's other noncompliance with medication regimen; R51 Headache; H53.8 Other visual disturbances; J34.2 Deviated nasal septum; I44.7 Left bundle-branch block, unspecified; Z76.0 Encounter for issue of repeat prescription
CPT/HCPCS: 36415; 70450; 80048; 93005; 93010; 99285